=== PATIENT | male | born 1970 | race American Indian/Alaskan Native ===

== ENCOUNTER 2021-06-25 02:14 | Inpatient (IN) | payer SELFPAY ==
--- NOTE | 2021-06-25 03:28 | Emergency Department Report ---
ED Chest Pain HPI - General Chief Complaint: Chest Pain Stated Complaint: CHEST PAIN PUI?: No Time Seen by Provider: 06/25/21 03:25 Source: patient, EMS Mode of arrival: Stretcher Limitations: No Limitations - History of Present Illness Initial Comments: Patient is a 51-year-old male who presents emergency room with complaints of chest pain short of breath. Patient states chest pain for over 5 or 6 hours. Patient states chest pain is worsening. Patient dates he called EMS because the pain became severe. Patient states the pain is 8 out of 10. Patient states his pain was better with the aspirin given by EMS. Patient states the pain is better with rest and aspirin. Patient states the pain is worse with exertion. Patient states the shortness of breath is better with rest and worse with exertion. Patient denies past medical history except for factor V Leiden. Patient denies diabetes. Patient denies hypertension and hyperlipidemia. Patient is obese. Patient denies recent travel. Patient denies recent international travel. Patient denies exposure to the novel coronavirus. Patient denies sick contacts. Patient denies fever and chills. Patient denies cough. Patient denies diarrhea. Patient denies coming in contact with anybody with symptoms of the novel coronavirus. MD Complaint: chest pain Onset: during rest Pain Location: substernal, left chest Pain Radiation: none Severity: severe Severity scale (0 -10): 8 Quality: sharp Consistency: constant Improves With: rest, other Worsens With: exertion re: dyspnea. denies: nausea, vomting, diaphoresis Other Symptoms: denies: cough, fever, syncope, rash, acid taste in mouth, leg swelling, palpitations, burping Treatments Prior to Arrival: aspirin Aspirin use within the Past 7 Days: (0) No - Related Data On Oral Contraceptives: No Allergies Allergy/AdvReac Type Severity Reaction Status Date / Time enoxaparin [From Lovenox] Allergy Hives Verified 06/25/21 04:02 Iodine and Iodide Containing Allergy Swelling Verified 06/25/21 04:02 Produc risperidone [From Risperdal] Allergy Hives Verified 06/25/21 04:02 haloperidol [From Haldol] AdvReac Unknown Verified 06/25/21 04:02 Heart Score - HEART Score History: Moderately suspicious EKG: Non-specific Age: 45-65 Risk factors: 1-2 risk factors Troponin: < normal limit HEART Score: 4 - EKG Read Time Time EKG Completed: 00:00 EKG Read Time: 00:00 ED Review of Systems ROS: Stated complaint: CHEST PAIN Other details as noted in HPI Constitutional: denies: chills, fever Eyes: denies: eye pain, eye discharge, vision change ENT: denies: ear pain, throat pain Respiratory: see HPI, shortness of breath. denies: cough, wheezing Cardiovascular: as per HPI, chest pain. denies: palpitations Endocrine: no symptoms reported Gastrointestinal: denies: abdominal pain, nausea, diarrhea Genitourinary: denies: urgency, dysuria Musculoskeletal: denies: back pain, joint swelling, arthralgia Skin: denies: rash, lesions Neurological: denies: headache, weakness, paresthesias Psychiatric: denies: anxiety, depression Hematological/Lymphatic: denies: easy bleeding, easy bruising ED Past Medical Hx - Past Medical History Previous Medical History?: Yes Additional medical history: Factor V Leiden - Surgical History Past Surgical History?: No - Family History Family history: no significant - Social History Smoking Status: Never Smoker Substance Use Type: None ED Physical Exam - General Limitations: No Limitations General appearance: alert, in no apparent distress - Head Head exam: Present: atraumatic, normocephalic - Eye Eye exam: Present: normal appearance - ENT ENT exam: Present: mucous membranes moist - Neck Neck exam: Present: normal inspection - Respiratory Respiratory exam: Present: normal lung sounds bilaterally. Absent: respiratory distress, chest wall tenderness - Cardiovascular Cardiovascular Exam: Present: regular rate, normal rhythm. Absent: systolic murmur, diastolic murmur, rubs, gallop - GI/Abdominal GI/Abdominal exam: Present: soft, normal bowel sounds - Rectal Rectal exam: Present: deferred - Extremities Exam Extremities exam: Present: normal inspection - Back Exam Back exam: Present: normal inspection - Neurological Exam Neurological exam: Present: alert, oriented X3 - Psychiatric Psychiatric exam: Present: normal affect, normal mood - Skin Skin exam: Present: warm, dry, intact, normal color. Absent: rash ED Course Vital Signs 06/25/21 06/25/21 03:28 04:53 Temperature 98.3 F Pulse Rate 80 77 Respiratory 14 15 Rate Blood Pressure 167/110 186/89 [Right] O2 Sat by Pulse 99 95 Oximetry - Reevaluation(s) Reevaluation #1: Patient states the pain is better. Patient states he is now feeling anxious. Patient will be given Ativan. Patient agrees with plan of care. 06/25/21 04:34 Reevaluation #2: Patient states he is feeling better. I discussed all results with patient. I discussed plan of care with patient. Patient agrees with plan of care and admission. Patient to be admitted to the hospitalist service. 06/25/21 05:12 - Consultations Consultation #1: Hospitalist consulted for admission. Hospitalist to admit patient. 06/25/21 05:12 SAUMYA score - Saumya Score Age > 65: (0) No Aspirin use within the Past 7 Days: (0) No 3 or more CAD Risk Factors: (0) No 2 or more Angina events in past 24 hrs: (0) No Known CAD with more than 50% Stenosis: (0) No Elevated Cardiac Markers: (0) No ST Deviation Greater than 0.5mm: (0) No SAUMYA Score: 0 ED Medical Decision Making - Lab Data Result diagrams: 06/25/21 04:08 06/25/21 04:08 - EKG Data -: EKG Interpreted by Me EKG shows normal: sinus rhythm, axis, intervals, QRS complexes, ST-T waves Rate: normal - Radiology Data Radiology results: report reviewed, image reviewed interpreted by me: Chest x-ray: No pneumonia, no pneumothorax, no foreign body, no osseous findings, no acute findings CHEST 1 VIEW 06/25/2021 4:22 AM INDICATION / CLINICAL INFORMATION: Chest Pain. COMPARISON: None available. FINDINGS: SUPPORT DEVICES: None. HEART / MEDIASTINUM: No significant abnormality. LUNGS / PLEURA: No significant pulmonary or pleural abnormality. No pneumothorax. ADDITIONAL FINDINGS: No significant additional findings. IMPRESSION: 1. No acute findings. - Medical Decision Making Patient is a 51-year-old male who presents emergency room complaints of chest pain and shortness of breath. Patient is obese. Patient had labs done. Patient's labs unremarkable except for mild renal insufficiency. Patient given aspirin, morphine and Zofran for the chest pain. Patient's chest pain is well. Patient states that became anxious. Patient given 1 of Ativan and responded well to that. Patient had a chest x-ray which was negative for acute findings. Patient had an EKG done which was negative for acute findings and a normal ST. I personally reviewed the EKG and chest x-ray. Patient's heart score is elevated. Patient is high risk and the patient will require a inpatient rule out of ACS. Patient admitted to the hospital service for further evaluation treatment and rule out ACS. Critical care time documented due to the multiple reassessments, prolonged time at the bedside, interpretation of diagnostics and labs. - Differential Diagnosis Chest pain, ACS, shortness of breath, anxiety, obesity Critical Care Time: Yes Critical care time in (mins) excluding proc time.: 35 Critical care attestation.: If time is entered above; I have spent that time in minutes in the direct care of this critically ill patient, excluding procedure time. Critical Care Time: 35 minutes ED Disposition Clinical Impression: SOB (shortness of breath), Anxiety, Mild renal insufficiency Chest pain Qualifiers: Chest pain type: unspecified Qualified Code(s): R07.9 - Chest pain, unspecified Disposition: ADMITTED INPATIENT Is pt being admited?: Yes Does the pt Need Aspirin: No Condition: Critical Referrals: PRIMARY CARE, [Primary Care Provider] - 3-5 Days Time of Disposition: 05:18
--- NOTE | 2021-06-25 04:32 | XRay Report ---
CHEST 1 VIEW 06/25/2021 4:22 AM INDICATION / CLINICAL INFORMATION: Chest Pain. COMPARISON: None available. FINDINGS: SUPPORT DEVICES: None. HEART / MEDIASTINUM: No significant abnormality. LUNGS / PLEURA: No significant pulmonary or pleural abnormality. No pneumothorax. ADDITIONAL FINDINGS: No significant additional findings. IMPRESSION: 1. No acute findings. Signer Name: Dereck Reardon MD Signed: 06/25/2021 4:27 AM Workstation Name: [id number]
[2021-06-25] MEDS ORDERED: LORazepam 2 MG/ML VIAL IV ONE (04:34)
[2021-06-25 04:36] LABS: Basophils % (Auto) 0.4 % (0.0-1.8); Eosinophils # (Auto) 0.1 K/mm3 (0.0-0.4); Eosinophils % (Auto) 1.7 % (0.0-4.3); Hematocrit 50.5 % (35.5-45.6); Hemoglobin 16.6 gm/dl (11.8-15.2); Lymphocytes # (Auto) 2.3 K/mm3 (1.2-5.4); Lymphocytes % (Auto) 41.3 % (13.4-35.0); Mean Corpuscular HGB Conc 33 % (32-34); Mean Corpuscular Volume 87 fl (84-94); Monocytes # (Auto) 0.6 K/mm3 (0.0-0.8); Monocytes % (Auto) 10.1 % (0.0-7.3); Platelet Count 164 K/mm3 (140-440); Red Blood Count 5.82 M/mm3 (3.65-5.03); Red Cell Distribution Width 14.1 % (13.2-15.2)
[2021-06-25 04:43] LABS: INR 0.88 (0.87-1.13)
[2021-06-25 04:44] LABS: Partial Thromboplastin Time 28.5 Sec. (24.2-36.6)
[2021-06-25] MEDS ORDERED: ONDANSETRON 4 MG/2 ML INJ IV ONE (04:46)
[2021-06-25] MEDS ORDERED: MORPHINE 2 MG/1 ML INJ IV ONE (04:46)
[2021-06-25 04:49] LABS: Alanine Aminotransferase 37 units/L (7-56); BUN/Creatinine Ratio 6; Blood Urea Nitrogen 10 mg/dL (9-20); Calcium 9.9 mg/dL (8.4-10.2); Hemolysis Index 2
--- NOTE | 2021-06-25 08:49 | History and Physical Report ---
History of Present Illness Date of examination: 06/25/21 Date of admission: 06/25/21 05:18 Chief complaint: cp History of present illness: 51-year-old male with past medical history of factor V Leiden deficiency who presents to the emergency department with complaints of chest pain shortness of breath. Patient reports pain has been persistent for the past 5 to 6 hours prior to admission. Patient reports that his pain has progressively worsened which prompted his call for EMS and prompted his visit to the emergency room. He reports improvement of his chest pain with aspirin by EMS. Patient reports pain is worse with exertion. Patient also has some associated dyspnea but denies any nausea or vomiting. No diaphoresis. Patient denies any recent travel. Patient denies any exposure to COVID-19. No headache or visual disturbances Past History Past Medical History: other (Factor V Leiden deficiency) Past Surgical History: No surgical history Social history: no significant social history Family history: no significant family history Medications and Allergies Allergies Allergy/AdvReac Type Severity Reaction Status Date / Time enoxaparin [From Lovenox] Allergy Hives Verified 06/25/21 04:02 Iodine and Iodide Containing Allergy Swelling Verified 06/25/21 04:02 Produc risperidone [From Risperdal] Allergy Hives Verified 06/25/21 04:02 haloperidol [From Haldol] AdvReac Unknown Verified 06/25/21 04:02 Review of Systems All systems: negative Exam - Constitutional Vitals: Temp Pulse Resp BP Pulse Ox 98.2 F 88 20 179/107 95 06/25/21 08:26 06/25/21 08:26 06/25/21 08:26 06/25/21 08:26 06/25/21 08:26 General appearance: Present: no acute distress, well-nourished - EENT Eyes: Present: PERRL ENT: hearing intact, clear oral mucosa - Neck Neck: Present: supple, normal ROM - Respiratory Respiratory effort: normal Respiratory: bilateral: CTA - Cardiovascular Heart Sounds: Present: S1 & S2. Absent: rub, click - Extremities Extremities: pulses symmetrical, No edema Peripheral Pulses: within normal limits - Abdominal General gastrointestinal: Present: soft, non-tender, non-distended, normal bowel sounds Male genitourinary: Present: normal - Integumentary Integumentary: Present: clear, warm, dry - Musculoskeletal Musculoskeletal: gait normal, strength equal bilaterally - Psychiatric Psychiatric: appropriate mood/affect, intact judgment & insight - Neurologic Neurologic: CNII-XII intact, moves all extremities HEART Score - HEART Score EKG: Non-specific Age: 45-65 Risk factors: 1-2 risk factors Troponin: Troponin T < 0.010 ng/mL (0.00-0.029) 06/25/21 04:08 Troponin: < normal limit Results - Labs CBC & Chem 7: 06/25/21 04:08 06/25/21 04:08 Labs: Laboratory Last Values WBC 5.6 K/mm3 (4.5-11.0) 06/25/21 04:08 RBC 5.82 M/mm3 (3.65-5.03) H 06/25/21 04:08 Hgb 16.6 gm/dl (11.8-15.2) H 06/25/21 04:08 Hct 50.5 % (35.5-45.6) H 06/25/21 04:08 MCV 87 fl (84-94) 06/25/21 04:08 MCH 29 pg (28-32) 06/25/21 04:08 MCHC 33 % (32-34) 06/25/21 04:08 RDW 14.1 % (13.2-15.2) 06/25/21 04:08 Plt Count 164 K/mm3 (140-440) 06/25/21 04:08 Lymph % (Auto) 41.3 % (13.4-35.0) H 06/25/21 04:08 [place] % (Auto) 10.1 % (0.0-7.3) H 06/25/21 04:08 Eos % (Auto) 1.7 % (0.0-4.3) 06/25/21 04:08 Baso % (Auto) 0.4 % (0.0-1.8) 06/25/21 04:08 Lymph # (Auto) 2.3 K/mm3 (1.2-5.4) 06/25/21 04:08 [place] # (Auto) 0.6 K/mm3 (0.0-0.8) 06/25/21 04:08 Eos # (Auto) 0.1 K/mm3 (0.0-0.4) 06/25/21 04:08 Baso # (Auto) 0.0 K/mm3 (0.0-0.1) 06/25/21 04:08 Seg Neutrophils % 46.5 % (40.0-70.0) 06/25/21 04:08 Seg Neutrophils # 2.6 K/mm3 (1.8-7.7) 06/25/21 04:08 PT 13.0 Sec. (12.2-14.9) 06/25/21 04:08 INR 0.88 (0.87-1.13) 06/25/21 04:08 APTT 28.5 Sec. (24.2-36.6) 06/25/21 04:08 Sodium 135 mmol/L (137-145) L 06/25/21 04:08 Potassium 3.6 mmol/L (3.6-5.0) 06/25/21 04:08 Chloride 97.3 mmol/L (98-107) L 06/25/21 04:08 Carbon Dioxide 21 mmol/L (22-30) L 06/25/21 04:08 Anion Gap 20 mmol/L 06/25/21 04:08 BUN 10 mg/dL (9-20) 06/25/21 04:08 Creatinine 1.7 mg/dL (0.8-1.3) H 06/25/21 04:08 Estimated GFR 43 ml/min 06/25/21 04:08 BUN/Creatinine Ratio 6 % 06/25/21 04:08 Glucose 87 mg/dL (75-100) 06/25/21 04:08 Calcium 9.9 mg/dL (8.4-10.2) 06/25/21 04:08 Total Bilirubin 0.20 mg/dL (0.1-1.2) 06/25/21 04:08 AST 31 units/L (5-40) 06/25/21 04:08 ALT 37 units/L (7-56) 06/25/21 04:08 Alkaline Phosphatase 93 units/L (35-129) 06/25/21 04:08 Troponin T < 0.010 ng/mL (0.00-0.029) 06/25/21 04:08 Total Protein 7.4 g/dL (6.3-8.2) 06/25/21 04:08 Albumin 4.0 g/dL (3.9-5) 06/25/21 04:08 Albumin/Globulin Ratio 1.2 % 06/25/21 04:08 Assessment and Plan Assessment and plan: Chest pain. Factor V Leiden deficiency. Acute renal failure/acute kidney injury. 06/25/2021. The patient will be admitted and placed on the chest pain pathway. We will follow-up cardiac isoenzymes and serial EKG. Initial troponin is negative. Cardiology consultation. Ischemic evaluation per cardiology recommendations. Given patient's factor V Leiden deficiency, we will check a D- dimer to risk stratify for possible PE. Consider CTA of chest. With regards to patient's renal insufficiency, we will start IV fluid hydration and follow-up BMP. Consider renal ultrasound and nephrology consultation.
[2021-06-25] MEDS ORDERED: ACETAMINOPHEN 325 MG TAB PO PRN ×2 (08:50→10:00)
[2021-06-25] MEDS ORDERED: ONDANSETRON 4 MG/2 ML INJ IV PRN (10:00)
[2021-06-25] MEDS ORDERED: traMADol 50 MG TAB PO PRN (10:00)
--- NOTE | 2021-06-25 13:09 | Event Note ---
Date: 06/25/21 Patient argumentative and refusing all recommendations and care from cardiology. Attempted to explain plan of care but patien continued to refuse all care. Will sign off
[2021-06-25 15:17] LABS: Basophils # (Auto) 0.1 K/mm3 (0.0-0.1); Basophils % (Auto) 2.1 % (0.0-1.8); Eosinophils # (Auto) 0.2 K/mm3 (0.0-0.4); Hematocrit 46.4 % (35.5-45.6); Hemoglobin 15.2 gm/dl (11.8-15.2); Lymphocytes # (Auto) 1.7 K/mm3 (1.2-5.4); Lymphocytes % (Auto) 36.9 % (13.4-35.0); Mean Corpuscular HGB Conc 33 % (32-34); Mean Corpuscular Volume 85 fl (84-94); Monocytes # (Auto) 0.5 K/mm3 (0.0-0.8); Monocytes % (Auto) 10.1 % (0.0-7.3); Platelet Count 164 K/mm3 (140-440); Red Blood Count 5.47 M/mm3 (3.65-5.03)
[2021-06-25 15:30] LABS: BUN/Creatinine Ratio 12; Blood Urea Nitrogen 15 mg/dL (9-20); Hemolysis Index 19
[2021-06-25] MEDS: HYDROcodone/ACETAMINOPHEN 5-325 MG TAB PO PRN (18:06)
[2021-06-25] MEDS: MORPHINE 4 MG/1 ML INJ IV PRN (22:19)
[2021-06-25] MEDS ORDERED: hydrALAZINE 20 MG/1 ML INJ IV ONE (22:49)
[2021-06-26] MEDS: DIVALPROEX DR 250 MG TAB PO SCH ×3 (01:30→21:27)
[2021-06-26] MEDS ORDERED: hydrALAZINE 20 MG/1 ML INJ IV ONE (05:14)
[2021-06-26] MEDS: HYDROcodone/ACETAMINOPHEN 5-325 MG TAB PO PRN (05:18)
--- NOTE | 2021-06-26 07:39 | Discharge Summary ---
Providers - Providers Date of Admission: 06/25/21 05:18 Date of discharge: 06/26/21 Attending physician: JENNIFER SIMMONS 06/25/21 Consult to Cardiac Rehabilitation [CONS] Routine Reason For Exam: Phase I 06/25/21 08:50 Consult to Cardiology [CONS] Routine Consulting Provider: ARIANA BURR Reason For Exam: cp Primary care physician: [facility] Reason for admission: Chest pain Condition: Good Hospital course: 51-year-old male with past medical history of factor V Leiden deficiency who presented through the emergency department with chief complaint of chest pain. Patient was admitted with diagnosis of acute kidney injury and chest pain and was seen by cardiology in consultation. However, patient was noted to be argumentative and refusing all recommendations and care from cardiology. Cardiology attempt to explain plan of care but patient continued to refuse all care. Patient's troponins were found to be negative. No acute changes on EKG. The patient's acute kidney injury/acute renal failure resolved with IV fluid hydration. Creatinine returned to normal range of 1.3. Given patient's history of factor V Leiden deficiency, we will obtain CTA of chest (if patient agreeable) and if found to be negative patient will discharge home. Dedicated discharge time 35 minutes Disposition: 01 HOME / SELF CARE / HOMELESS Final Discharge Diagnosis (Prints w/discharge instructions): Chest pain etiology likely secondary to GERD, factor V Leiden deficiency, acute kidney injury secondary to vasomotor nephropathy Core Measure Documentation - Palliative Care Palliative Care/ Comfort Measures: Not Applicable - Core Measures Any of the following diagnoses?: none Exam - Constitutional Vitals: Temp Pulse Resp BP Pulse Ox 98.1 F 81 18 180/89 92 06/26/21 04:00 06/26/21 04:00 06/26/21 04:00 06/26/21 04:00 06/26/21 05:05 General appearance: Present: no acute distress, well-nourished - EENT Eyes: Present: PERRL ENT: hearing intact, clear oral mucosa - Neck Neck: Present: supple, normal ROM - Respiratory Respiratory effort: normal Respiratory: bilateral: CTA - Cardiovascular Heart Sounds: Present: S1 & S2. Absent: rub, click - Extremities Extremities: pulses symmetrical, No edema Peripheral Pulses: within normal limits - Abdominal General gastrointestinal: Present: soft, non-tender, non-distended, normal bowel sounds Male genitourinary: Present: normal - Integumentary Integumentary: Present: clear, warm, dry - Musculoskeletal Musculoskeletal: gait normal, strength equal bilaterally - Psychiatric Psychiatric: appropriate mood/affect, intact judgment & insight - Neurologic Neurologic: CNII-XII intact, moves all extremities Plan Activity: advance as tolerated Weight Bearing Status: Weight Bear as Tolerated Follow up with: PRIMARY CARE, [Primary Care Provider] - 3-5 Days Prescriptions: Warfarin [Coumadin] 7.5 mg PO QDAY #30 QUEtiapine [SEROquel] 100 mg PO BID #60
[2021-06-26] MEDS ORDERED: HEPARIN 10,000 UNITS/10 ML VIAL IV PRN ×2 (08:17→11:43)
--- NOTE | 2021-06-26 09:08 | Progress Note ---
Assessment and Plan Assessment and plan: Chest pain. Factor V Leiden deficiency. Acute renal failure/acute kidney injury. 06/25/2021. The patient will be admitted and placed on the chest pain pathway. We will follow-up cardiac isoenzymes and serial EKG. Initial troponin is negative. Cardiology consultation. Ischemic evaluation per cardiology recommendations. Given patient's factor V Leiden deficiency, we will check a D- dimer to risk stratify for possible PE. Consider CTA of chest. With regards to patient's renal insufficiency, we will start IV fluid hydration and follow-up BMP. Consider renal ultrasound and nephrology consultation. 06/26/2021. Cardiology reports patient was extremely argumentative and combative yesterday during their evaluation. Patient refused all tests and recommendations. I spoke with the patient this morning and he reports paranoia and history of schizophrenia. Patient also voiced to nursing suicidal ideation. We will obtain psychiatry consultation and place the patient on 101. Patient will also undergo VQ scan to rule out PE given factor V Leiden deficiency. Start heparin bridge and Coumadin. Patient reports that he has been without his Coumadin for several days. Renal insufficiency has improved and acute kidney injury resolved with IV fluid hydration. Patient back to baseline creatinine at 1.3 History Interval history: No new issues overnight. Patient reports suicidal ideation this morning Hospitalist Physical - Constitutional Vitals: Temp Pulse Resp BP Pulse Ox 97.6 F 77 18 191/106 95 06/26/21 08:06 06/26/21 08:06 06/26/21 08:06 06/26/21 08:06 06/26/21 08:06 General appearance: Present: no acute distress, well-nourished - EENT Eyes: Present: PERRL, EOM intact ENT: hearing intact, clear oral mucosa, dentition normal - Neck Neck: Present: supple, normal ROM - Respiratory Respiratory effort: normal Respiratory: bilateral: CTA - Cardiovascular Rhythm: regular Heart Sounds: Present: S1 & S2. Absent: gallop, rub - Extremities Extremities: no ischemia, No edema, Full ROM - Abdominal General gastrointestinal: soft, non-tender, non-distended, normal bowel sounds - Integumentary Integumentary: Present: clear, warm, dry - Neurologic Neurologic: CNII-XII intact, moves all extremities HEART Score - HEART Score EKG: Non-specific Age: 45-65 Risk factors: 1-2 risk factors Troponin: Troponin T < 0.010 ng/mL (0.00-0.029) 06/25/21 14:24 Troponin: < normal limit Results - Labs CBC & Chem 7: 06/25/21 14:24 06/25/21 14:24 Labs: Laboratory Last Values WBC 4.5 K/mm3 (4.5-11.0) 06/25/21 14:24 RBC 5.47 M/mm3 (3.65-5.03) H 06/25/21 14:24 Hgb 15.2 gm/dl (11.8-15.2) 06/25/21 14:24 Hct 46.4 % (35.5-45.6) H 06/25/21 14:24 MCV 85 fl (84-94) 06/25/21 14:24 MCH 28 pg (28-32) 06/25/21 14:24 MCHC 33 % (32-34) 06/25/21 14:24 RDW 14.0 % (13.2-15.2) 06/25/21 14:24 Plt Count 164 K/mm3 (140-440) 06/25/21 14:24 Lymph % (Auto) 36.9 % (13.4-35.0) H 06/25/21 14:24 [place] % (Auto) 10.1 % (0.0-7.3) H 06/25/21 14:24 Eos % (Auto) 4.0 % (0.0-4.3) 06/25/21 14:24 Baso % (Auto) 2.1 % (0.0-1.8) H 06/25/21 14:24 Lymph # (Auto) 1.7 K/mm3 (1.2-5.4) 06/25/21 14:24 [place] # (Auto) 0.5 K/mm3 (0.0-0.8) 06/25/21 14:24 Eos # (Auto) 0.2 K/mm3 (0.0-0.4) 06/25/21 14:24 Baso # (Auto) 0.1 K/mm3 (0.0-0.1) 06/25/21 14:24 Seg Neutrophils % 46.9 % (40.0-70.0) 06/25/21 14:24 Seg Neutrophils # 2.1 K/mm3 (1.8-7.7) 06/25/21 14:24 PT 13.0 Sec. (12.2-14.9) 06/25/21 04:08 INR 0.88 (0.87-1.13) 06/25/21 04:08 APTT 28.5 Sec. (24.2-36.6) 06/25/21 04:08 Sodium 133 mmol/L (137-145) L 06/25/21 14:24 Potassium 3.8 mmol/L (3.6-5.0) 06/25/21 14:24 Chloride 98.5 mmol/L (98-107) 06/25/21 14:24 Carbon Dioxide 20 mmol/L (22-30) L 06/25/21 14:24 Anion Gap 18 mmol/L 06/25/21 14:24 BUN 15 mg/dL (9-20) 06/25/21 14:24 Creatinine 1.3 mg/dL (0.8-1.3) 06/25/21 14:24 Estimated GFR > 60 ml/min 06/25/21 14:24 BUN/Creatinine Ratio 12 % 06/25/21 14:24 Glucose 124 mg/dL (75-100) H 06/25/21 14:24 Calcium 9.0 mg/dL (8.4-10.2) 06/25/21 14:24 Total Bilirubin 0.20 mg/dL (0.1-1.2) 06/25/21 04:08 AST 31 units/L (5-40) 06/25/21 04:08 ALT 37 units/L (7-56) 06/25/21 04:08 Alkaline Phosphatase 93 units/L (35-129) 06/25/21 04:08 Troponin T < 0.010 ng/mL (0.00-0.029) 06/25/21 14:24 Total Protein 7.4 g/dL (6.3-8.2) 06/25/21 04:08 Albumin 4.0 g/dL (3.9-5) 06/25/21 04:08 Albumin/Globulin Ratio 1.2 % 06/25/21 04:08 Brantley/IV: Voiding Method Urinal Active Medications - Current Medications Current Medications: Generic Name Dose Route Start Last Admin Trade Name Freq PRN Reason Stop Dose Admin Acetaminophen 650 mg 06/25/21 10:00 Acetaminophen 325 Mg Tab PO Q4H PRN Pain MILD(1-3)/Fever >100.5/CASTRO Hydrocodone Bitart/Acetaminophen 2 each 06/25/21 10:00 06/26/21 05:18 Hydrocodone/Acetaminophen 5-325 Mg Tab PO 2 each Q6H PRN Administration Pain, Moderate (4-6) Heparin Sodium (Porcine) 5,200 unit 06/26/21 08:17 Heparin 10,000 Units/10 Ml Vial 40 unit/kg (5200 unit) IV Q6H PRN Anti-Xa Assay < 0.1 units/ml Morphine Sulfate 2 mg 06/25/21 10:00 06/25/21 22:19 Morphine 4 Mg/1 Ml Inj IV 2 mg Q4H PRN Administration Pain , Severe (7-10) Ondansetron HCl 4 mg 06/25/21 10:00 Ondansetron 4 Mg/2 Ml Inj IV Q8H PRN Nausea And Vomiting Quetiapine Fumarate 100 mg 06/26/21 10:00 Quetiapine 100 Mg Tab PO BID [facility] Sodium Chloride 10 ml 06/25/21 10:00 06/25/21 22:20 Sodium Chloride 0.9% 10 Ml Flush Syringe IV 10 ml BID [facility] Administration Sodium Chloride 10 ml 06/25/21 08:50 Sodium Chloride 0.9% 10 Ml Flush Syringe IV PRN PRN LINE FLUSH Sodium Chloride 10 ml 06/25/21 09:00 Sodium Chloride 0.9% 10 Ml Flush Syringe IV PRN PRN LINE FLUSH Tramadol HCl 50 mg 06/25/21 10:00 Tramadol 50 Mg Tab PO Q6H PRN Pain, Moderate (4-6) Warfarin Sodium 7.5 mg 06/26/21 17:00 Warfarin 7.5 Mg Tab PO DAILY@1700 [facility] Protocol
[2021-06-26 09:34] LABS: Eosinophils # (Auto) 0.2 K/mm3 (0.0-0.4); Eosinophils % (Auto) 2.9 % (0.0-4.3); Hematocrit 49.5 % (35.5-45.6); Hemoglobin 16.2 gm/dl (11.8-15.2); INR 0.87 (0.87-1.13); Lymphocytes # (Auto) 1.5 K/mm3 (1.2-5.4); Lymphocytes % (Auto) 27.8 % (13.4-35.0); Mean Corpuscular HGB Conc 33 % (32-34); Mean Corpuscular Volume 86 fl (84-94); Monocytes # (Auto) 0.5 K/mm3 (0.0-0.8); Monocytes % (Auto) 9.3 % (0.0-7.3); Platelet Count 149 K/mm3 (140-440); Red Blood Count 5.78 M/mm3 (3.65-5.03); Red Cell Distribution Width 13.9 % (13.2-15.2)
[2021-06-26 09:35] LABS: Basophils % (Auto) 0.4 % (0.0-1.8); Partial Thromboplastin Time 26.6 Sec. (24.2-36.6)
[2021-06-26 10:12] LABS: BUN/Creatinine Ratio 15; Blood Urea Nitrogen 19 mg/dL (9-20); Hemolysis Index 10
[2021-06-26] MEDS: QUEtiapine 100 MG TAB PO SCH ×3 (10:29→21:40)
--- NOTE | 2021-06-26 12:15 | Consultation ---
History of Present Illness - Reason for Consult Consult date: 06/26/21 Reason for consult: psychosis - Chief Complaint Chief complaint: cp - History of Present Psychiatric Illness Per Note: 51-year-old male with past medical history of factor V Leiden deficiency who presents to the emergency department with complaints of chest pain shortness of breath. Patient reports pain has been persistent for the past 5 to 6 hours prior to admission. Patient reports that his pain has progressively worsened which prompted his call for EMS and prompted his visit to the emergency room. He reports improvement of his chest pain with aspirin by EMS. Patient reports pain is worse with exertion. Patient also has some asso ciated dyspnea but denies any nausea or vomiting. No diaphoresis. Patient denies any recent travel. Patient denies any exposure to COVID-19. No headache or visual disturbances. Shane Thompson is a 51 year old male with history of Schizophrenia. In my interview with the patient, he is agitated and paranoid. 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 He reports noncompliance with psychotropic medications for the past 5 days. The patient states he has being depressed for 2 days and feels worse today. He reports a prior suicidal attempt via overdosing on pills;the patient endorses suicidal ideation with a plan to overdose on pills. He reports auditory/ tactile hallucination stating " voices saying to kill myself and some of my family members, I don't feel safe, people are poisoning my food and they are out to get me." He denies homicidal ideation. PAST PSYCHIATRIC HISTORY Diagnoses: Schizophrenia Suicide attempts or Self-harm behavior: Yes Prior psychiatric hospitalizations: Yes Substance Abuse history: Patient denies Previous psychiatric medications tried: Risperidone, Haldol Outpatient treatment: Unknown PAST MEDICAL HISTORY: Family Psychiatric History: Not available SOCIAL HISTORY Marital Status: Single Living Arrangements: Lives with ex and son Employment Status:employed- concrete truck driver Access to guns/weapons: None reported Education: 12th grade History of Abuse: None reported Legal History: None reported REVIEW OF SYSTEMS Constitutional: Negative for weight loss ENT: Negative for stridor Respiratory: Negative for cough or hemoptysis All other systems reviewed and are negative MENTAL STATUS EXAMINATION General Appearance and Behavior: Age appropriate, good hygiene, wearing appropriate clothes, good eye contact, cooperative polite with questioning. Cooperation: Participating/engaged Psychomotor Behavior: unremarkable and within normal limits Mood:agitated Affect and affective range: congruent with mood Thought Process: racing thoughts Thought Content: suicidal Speech: Normal volume, Regular rate and rhythm Intellectual Functioning: Average Suicidal Ideation: Yes Homicidal Ideation: Denies Hallucinations: Yes, auditory/Tactile Impulse Control:Questionable Insight and Judgment: Limit insight and poor judgment Memory: Normal Attention: Divided Orientation: Alert, oriented Assessment and Plan (1) Schizophrenia-F20.9 Current Visit: Yes Status: Acute RECOMMENDATIONS I agree with the current treatment plan Start Depakote DR 250mg po BID Risks, benefits and alternatives of medications discussed with the patient, questions answered and consent obtained from patient. PSYCHOTHERAPY: Supportive psychotherapy provided MEDICAL: Per primary team DELIRIUM PRECAUTIONS: Please re-orient patient frequently, keep lights on during the day, and minimize benzodiazepines and opiates as these medications could worsen patient's confusion. HEAD BUCKER: Per medical team DISPOSITION: Recommend acute inpatient psychiatric hospitalization at this time FOLLOW-UP: Will follow for medication management. Thank you for the consult. Please contact with any questions and/or concerns. Medications and Allergies Allergies Allergy/AdvReac Type Severity Reaction Status Date / Time enoxaparin [From Lovenox] Allergy Hives Verified 06/25/21 04:02 haloperidol [From Haldol] Allergy HIVES Verified 06/25/21 12:22 SHORTNESS OF BREATH Iodine and Iodide Containing Allergy Swelling Verified 06/25/21 04:02 Produc risperidone [From Risperdal] Allergy Hives Verified 06/25/21 04:02 Home Medications Medication Instructions Recorded Confirmed Last Taken Type QUEtiapine [SEROquel] 100 mg PO BID #60 06/26/21 Unknown Rx Warfarin [Coumadin] 7.5 mg PO QDAY #30 06/26/21 Unknown Rx Active Meds: Active Medications Acetaminophen (Acetaminophen 325 Mg Tab) 650 mg PO Q4H PRN PRN Reason: Pain MILD(1-3)/Fever >100.5/CASTRO Hydrocodone Bitart/Acetaminophen (Hydrocodone/Acetaminophen 5-325 Mg Tab) 2 each PO Q6H PRN PRN Reason: Pain, Moderate (4-6) Last Admin: 06/26/21 05:18 Dose: 2 each Documented by: Heparin Sodium (Porcine) (Heparin 10,000 Units/10 Ml Vial) 5,000 unit IV Q6H PRN PRN Reason: Anti-Xa Assay < 0.1 units/ml Heparin Sodium/Sodium Chloride (Heparin/ 0.45% Nacl-25,000 Unit/500 Ml) 25,000 unit in 500 mls @ 30 mls/hr IV TITR [facility]; Protocol Morphine Sulfate (Morphine 4 Mg/1 Ml Inj) 2 mg IV Q4H PRN PRN Reason: Pain , Severe (7-10) Last Admin: 06/25/21 22:19 Dose: 2 mg Documented by: Ondansetron HCl (Ondansetron 4 Mg/2 Ml Inj) 4 mg IV Q8H PRN PRN Reason: Nausea And Vomiting Quetiapine Fumarate (Quetiapine 100 Mg Tab) 100 mg PO BID [facility] Sodium Chloride (Sodium Chloride 0.9% 10 Ml Flush Syringe) 10 ml IV BID [facility] Last Admin: 06/25/21 22:20 Dose: 10 ml Documented by: Sodium Chloride (Sodium Chloride 0.9% 10 Ml Flush Syringe) 10 ml IV PRN PRN PRN Reason: LINE FLUSH Sodium Chloride (Sodium Chloride 0.9% 10 Ml Flush Syringe) 10 ml IV PRN PRN PRN Reason: LINE FLUSH Tramadol HCl (Tramadol 50 Mg Tab) 50 mg PO Q6H PRN PRN Reason: Pain, Moderate (4-6) Warfarin Sodium (Warfarin 7.5 Mg Tab) 7.5 mg PO DAILY@1700 [facility]; Protocol Mental Status Exam - Vital signs Last Vital Signs Temp 97.6 F 06/26/21 08:06 Pulse 77 06/26/21 08:06 Resp 18 06/26/21 08:06 BP 191/106 06/26/21 08:06 Pulse Ox 95 06/26/21 08:06 Results Result Diagrams: 06/26/21 08:58 06/26/21 08:58 Abnormal lab results 06/25/21 06/25/21 06/26/21 Range/Units 14:24 14:24 08:58 RBC 5.47 H 5.78 H (3.65-5.03) M/mm3 Hgb 16.2 H (11.8-15.2) gm/dl Hct 46.4 H 49.5 H (35.5-45.6) % Lymph % (Auto) 36.9 H (13.4-35.0) % [place] % (Auto) 10.1 H 9.3 H (0.0-7.3) % Baso % (Auto) 2.1 H (0.0-1.8) % Sodium 133 L (137-145) mmol/L Carbon Dioxide 20 L (22-30) mmol/L Glucose 124 H (75-100) mg/dL 06/26/21 Range/Units 08:58 RBC (3.65-5.03) M/mm3 Hgb (11.8-15.2) gm/dl Hct (35.5-45.6) % Lymph % (Auto) (13.4-35.0) % [place] % (Auto) (0.0-7.3) % Baso % (Auto) (0.0-1.8) % Sodium 134 L (137-145) mmol/L Carbon Dioxide (22-30) mmol/L Glucose 125 H (75-100) mg/dL All other labs normal.
[2021-06-26] MEDS: HEPARIN/ 0.45% NACL DRIP 25,000 UNIT/500 ML BAG IV SCH (15:30)
[2021-06-26] MEDS ORDERED: WARFARIN 7.5 MG TAB PO SCH (17:00)
[2021-06-27] MEDS: HYDROcodone/ACETAMINOPHEN 5-325 MG TAB PO PRN ×3 (01:44→17:39)
[2021-06-27] MEDS: HEPARIN/ 0.45% NACL DRIP 25,000 UNIT/500 ML BAG IV SCH ×2 (06:26→20:34)
[2021-06-27] MEDS: PANTOPRAZOLE 40 MG TAB PO SCH ×2 (07:30→17:40)
--- NOTE | 2021-06-27 08:53 | Progress Note ---
Assessment and Plan Assessment and plan: Chest pain. Factor V Leiden deficiency. Accelerated hypertension. Acute renal failure/acute kidney injury. Schizophrenia Suicidal ideation 06/25/2021. The patient will be admitted and placed on the chest pain pathway. We will follow-up cardiac isoenzymes and serial EKG. Initial troponin is nega tive. Cardiology consultation. Ischemic evaluation per cardiology recommendations. Given patient's factor V Leiden deficiency, we will check a D- dimer to risk stratify for possible PE. Consider CTA of chest. With regards to patient's renal insufficiency, we will start IV fluid hydration and follow-up BMP. Consider renal ultrasound and nephrology consultation. 06/26/2021. Cardiology reports patient was extremely argumentative and combative yesterday during their evaluation. Patient refused all tests and recommendations. I spoke with the patient this morning and he reports paranoia and history of schizophrenia. Patient also voiced to nursing suicidal ideation. We will obtain psychiatry consultation and place the patient on 1013. Patient will also undergo VQ scan to rule out PE given factor V Leiden deficiency. Start heparin bridge and Coumadin. Patient reports that he has been without his Coumadin for several days. Renal insufficiency has improved and acute kidney injury resolved with IV fluid hydration. Patient back to baseline creatinine at 1.3 06/27/2021. Continue 1013 for suicidal ideation. Continue Depakote to 50 mg p.o. twice daily per psychiatry recommendations. Continue heparin drip and Coumadin. VQ scan in a.m. to further assess for PE. However, D-dimer negative so suspicion is low. Creatinine at baseline of 1.3. Blood pressure improved with labetalol twice daily. History Interval history: No new issues overnight. Patient reports suicidal ideation this morning Hospitalist Physical - Constitutional Vitals: Temp Pulse Resp BP Pulse Ox 98.3 F 64 18 118/56 100 06/27/21 04:17 06/27/21 04:17 06/27/21 04:17 06/27/21 04:17 06/27/21 08:00 General appearance: Present: no acute distress, well-nourished - EENT Eyes: Present: PERRL, EOM intact ENT: hearing intact, clear oral mucosa, dentition normal - Neck Neck: Present: supple, normal ROM - Respiratory Respiratory effort: normal Respiratory: bilateral: CTA - Cardiovascular Rhythm: regular Heart Sounds: Present: S1 & S2. Absent: gallop, rub - Extremities Extremities: no ischemia, No edema, Full ROM - Abdominal General gastrointestinal: soft, non-tender, non-distended, normal bowel sounds - Integumentary Integumentary: Present: clear, warm, dry - Neurologic Neurologic: CNII-XII intact, moves all extremities HEART Score - HEART Score EKG: Non-specific Age: 45-65 Risk factors: 1-2 risk factors Troponin: Troponin T < 0.010 ng/mL (0.00-0.029) 06/25/21 14:24 Troponin: < normal limit Results - Labs CBC & Chem 7: 06/26/21 08:58 06/26/21 08:58 Labs: Laboratory Last Values WBC 5.5 K/mm3 (4.5-11.0) 06/26/21 08:58 RBC 5.78 M/mm3 (3.65-5.03) H 06/26/21 08:58 Hgb 16.2 gm/dl (11.8-15.2) H 06/26/21 08:58 Hct 49.5 % (35.5-45.6) H 06/26/21 08:58 MCV 86 fl (84-94) 06/26/21 08:58 MCH 28 pg (28-32) 06/26/21 08:58 MCHC 33 % (32-34) 06/26/21 08:58 RDW 13.9 % (13.2-15.2) 06/26/21 08:58 Plt Count 149 K/mm3 (140-440) 06/26/21 08:58 Lymph % (Auto) 27.8 % (13.4-35.0) 06/26/21 08:58 [place] % (Auto) 9.3 % (0.0-7.3) H 06/26/21 08:58 Eos % (Auto) 2.9 % (0.0-4.3) 06/26/21 08:58 Baso % (Auto) 0.4 % (0.0-1.8) 06/26/21 08:58 Lymph # (Auto) 1.5 K/mm3 (1.2-5.4) 06/26/21 08:58 [place] # (Auto) 0.5 K/mm3 (0.0-0.8) 06/26/21 08:58 Eos # (Auto) 0.2 K/mm3 (0.0-0.4) 06/26/21 08:58 Baso # (Auto) 0.0 K/mm3 (0.0-0.1) 06/26/21 08:58 Seg Neutrophils % 59.6 % (40.0-70.0) 06/26/21 08:58 Seg Neutrophils # 3.3 K/mm3 (1.8-7.7) 06/26/21 08:58 PT 12.8 Sec. (12.2-14.9) 06/26/21 08:58 INR 0.87 (0.87-1.13) 06/26/21 08:58 APTT 26.6 Sec. (24.2-36.6) 06/26/21 08:58 D-Dimer 206.51 ng/mlDDU (0-234) 06/26/21 08:58 Heparin Anti-Xa Level 0.19 U.I./ml (0.3-0.7) L 06/26/21 22:44 Sodium 134 mmol/L (137-145) L 06/26/21 08:58 Potassium 3.8 mmol/L (3.6-5.0) 06/26/21 08:58 Chloride 101.3 mmol/L (98-107) 06/26/21 08:58 Carbon Dioxide 22 mmol/L (22-30) 06/26/21 08:58 Anion Gap 15 mmol/L 06/26/21 08:58 BUN 19 mg/dL (9-20) 06/26/21 08:58 Creatinine 1.3 mg/dL (0.8-1.3) 06/26/21 08:58 Estimated GFR > 60 ml/min 06/26/21 08:58 BUN/Creatinine Ratio 15 % 06/26/21 08:58 Glucose 125 mg/dL (75-100) H 06/26/21 08:58 Calcium 9.0 mg/dL (8.4-10.2) 06/26/21 08:58 Total Bilirubin 0.20 mg/dL (0.1-1.2) 06/25/21 04:08 AST 31 units/L (5-40) 06/25/21 04:08 ALT 37 units/L (7-56) 06/25/21 04:08 Alkaline Phosphatase 93 units/L (35-129) 06/25/21 04:08 Troponin T < 0.010 ng/mL (0.00-0.029) 06/25/21 14:24 Total Protein 7.4 g/dL (6.3-8.2) 06/25/21 04:08 Albumin 4.0 g/dL (3.9-5) 06/25/21 04:08 Albumin/Globulin Ratio 1.2 % 06/25/21 04:08 [place]/IV: Voiding Method Urinal Active Medications - Current Medications Current Medications: Generic Name Dose Route Start Last Admin Trade Name Freq PRN Reason Stop Dose Admin Acetaminophen 650 mg 06/25/21 10:00 Acetaminophen 325 Mg Tab PO Q4H PRN Pain MILD(1-3)/Fever >100.5/CASTRO Hydrocodone Bitart/Acetaminophen 2 each 06/25/21 10:00 06/27/21 01:44 Hydrocodone/Acetaminophen 5-325 Mg Tab PO 2 each Q6H PRN Administration Pain, Moderate (4-6) Divalproex Sodium 250 mg 06/26/21 13:00 06/26/21 21:[address] 250 Mg Tab PO Not Given BID [facility] Heparin Sodium (Porcine) 5,000 unit 06/26/21 08:17 Heparin 10,000 Units/10 Ml Vial IV Q6H PRN Anti-Xa Assay < 0.1 units/ml Heparin Sodium/Sodium Chloride 25,000 unit in 500 mls @ 30 mls/hr 06/26/21 12:00 06/27/21 06:26 Heparin/ 0.45% Nacl-25,000 Unit/500 Ml IV 1,650 units/hr TITR AARON 33 mls/hr Administration Protocol 1,500 UNITS/HR Labetalol HCl 200 mg 06/26/21 22:00 06/26/21 21:23 Labetalol 200 Mg Tab PO 200 mg BID AARON Administration Lorazepam 2 mg 06/26/21 12:19 Lorazepam 2 Mg/Ml Vial IV Q4H PRN Agitation Morphine Sulfate 2 mg 06/25/21 10:00 06/25/21 22:19 Morphine 4 Mg/1 Ml Inj IV 2 mg Q4H PRN Administration Pain , Severe (7-10) Ondansetron HCl 4 mg 06/25/21 10:00 Ondansetron 4 Mg/2 Ml Inj IV Q8H PRN Nausea And Vomiting Pantoprazole Sodium 40 mg 06/27/21 07:30 Pantoprazole 40 Mg Tab PO BIDAC [facility]ARON Quetiapine Fumarate 100 mg 06/26/21 10:00 06/26/21 21:40 Quetiapine 100 Mg Tab PO Not Given BID [facility]ON Sodium Chloride 10 ml 06/25/21 10:00 06/26/21 21:24 Sodium Chloride 0.9% 10 Ml Flush Syringe IV 10 ml BID [facility] Administration Sodium Chloride 10 ml 06/25/21 08:50 Sodium Chloride 0.9% 10 Ml Flush Syringe IV PRN PRN LINE FLUSH Sodium Chloride 10 ml 06/25/21 09:00 Sodium Chloride 0.9% 10 Ml Flush Syringe IV PRN PRN LINE FLUSH Tramadol HCl 50 mg 06/25/21 10:00 Tramadol 50 Mg Tab PO Q6H PRN Pain, Moderate (4-6) Warfarin Sodium 7.5 mg 06/26/21 17:00 06/26/21 18:19 Warfarin 7.5 Mg Tab PO 7.5 mg DAILY@1700 [facility] Administration Protocol
[2021-06-27 09:05] LABS: INR 0.84 (0.87-1.13)
[2021-06-27] MEDS: QUEtiapine 100 MG TAB PO SCH ×2 (10:20→21:49)
[2021-06-27] MEDS: DIVALPROEX DR 250 MG TAB PO SCH ×2 (10:20→21:50)
[2021-06-27] MEDS: WARFARIN 10 MG TAB PO SCH (17:40)
[2021-06-28] MEDS: LORazepam 2 MG/ML VIAL IV PRN ×4 (01:13→18:36)
[2021-06-28 08:20] LABS: Hematocrit 48.4 % (35.5-45.6); Hemoglobin 15.6 gm/dl (11.8-15.2)
[2021-06-28] MEDS: PANTOPRAZOLE 40 MG TAB PO SCH ×2 (08:37→17:43)
[2021-06-28 08:57] LABS: INR 0.97 (0.87-1.13)
--- NOTE | 2021-06-28 08:58 | Event Note ---
Date: 06/27/21 Patient reportedly refused VQ scan. Nurse reports that patient wants to fire me as his physician. Continue psychiatric evaluation for schizophrenia. I suspect that much of the patient's agitation is related to his paranoia from schizophrenia. Patient will be seen by the nurse practitioner with our group in the morning. Psychiatry recommends inpatient psychiatric care. Continue heparin bridge and Coumadin for now
[2021-06-28] MEDS: DIVALPROEX DR 250 MG TAB PO SCH (09:39)
[2021-06-28] MEDS: QUEtiapine 100 MG TAB PO SCH (09:39)
[2021-06-28] MEDS: HEPARIN/ 0.45% NACL DRIP 25,000 UNIT/500 ML BAG IV SCH (11:46)
--- NOTE | 2021-06-28 14:29 | Progress Note ---
Subjective - Reason for Consult Consult date: 06/28/21 Reason for consult: mental health evaluation - Chief Complaint Chief complaint: The patient continues to present with paranoia stating "there are ants in my food, people are trying to kill me. " The patient reports that he worked 17 days in a row prior to this admission. REVIEW OF SYSTEMS Constitutional: Negative for weight loss ENT: Negative for stridor Respiratory: Negative for cough or hemoptysis All other systems reviewed and are negative MENTAL STATUS EXAMINATION General Appearance and Behavior: Age appropriate, good hygiene, wearing ap propriate clothes, good eye contact, cooperative polite with questioning. Cooperation: Participating/engaged Psychomotor Behavior: unremarkable and within normal limits Mood:agitated Affect and affective range: congruent with mood Thought Process: racing thoughts Thought Content: suicidal Speech: Normal volume, Regular rate and rhythm Intellectual Functioning: Average Suicidal Ideation: Yes Homicidal Ideation: Denies Hallucinations: Yes, auditory/Tactile Impulse Control:Questionable Insight and Judgment: Limit insight and poor judgment Memory: Normal Attention: Divided Orientation: Alert, oriented Assessment and Plan (1) Schizophrenia-F20.9 Current Visit: Yes Status: Acute RECOMMENDATIONS I agree with the current treatment plan Increased Depakote DR 500 mg po BID Seroquel 100 mg po in the morning Seroquel 200 mg po QHS Risks, benefits and alternatives of medications discussed with the patient, questions answered and consent obtained from patient. PSYCHOTHERAPY: Supportive psychotherapy provided MEDICAL: Per primary team DELIRIUM PRECAUTIONS: Please re-orient patient frequently, keep lights on during the day, and minimize benzodiazepines and opiates as these medications could worsen patient's confusion. SENIOR BILLING CONSULTANT: Per medical team DISPOSITION: Recommend acute inpatient psychiatric hospitalization at this time FOLLOW-UP: Will follow for medication management. Thank you for the consult. Please contact with any questions and/or concerns. Mental Status Exam - Vital signs Last Vital Signs Temp 98.4 F 06/28/21 08:29 Pulse 61 06/27/21 23:44 Resp 20 06/28/21 08:29 BP 150/79 06/28/21 08:29 Pulse Ox 100 06/28/21 07:27
[2021-06-28] MEDS: WARFARIN 10 MG TAB PO SCH (17:43)
[2021-06-28] MEDS ORDERED: DOCUSATE SODIUM 100 MG CAP PO PRN (18:46)
--- NOTE | 2021-06-28 18:51 | Progress Note ---
Assessment and Plan Assessment and plan: This is a 51-year-old male with schizophrenia, factor V leiden deficiency and history of multiple DVTs and PE admitted with schizophrenia, suicidal ideation, acute renal failure, accelerated hypertension and to rule out PE. Neuro: SI/visual hallucinations, h/o schizophrenia -Patient has active suicidal ideations and visual hallucinations -Psych consulted, appreciate recommendations -Psych recommends inpatient psychiatric hospitalization at this time -Depakote DR 500 mg p.o. twice daily, Seroquel 100 mg p.o. every morning, Seroquel 200 mg nightly -Avoid delirium -Reorientation as needed -Minimize benzodiazepines -As needed analgesia: [place], morphine, tramadol -As needed Ativan CV: Accelerated hypertension, subtherapeutic INR -Labetalol 200 mg twice daily -BP monitoring per protocol -Cardiology cosnult for chest pain workup however they have signed off as the patient is refusing recommendations/care Respiratory: NAD -Remains on room air -Patient initially complained of shortness of breath and dyspnea -Initial D-dimer 206 -Patient refused VQ scan GI: NAD -No output recorded as patient voids -Patient is on a cardiac diet -Protonix -BR: As needed Colace : Hyponatremia, acute kidney injury secondary to vasomotor nephropathy -Admit creatinine 1.7 -Creatinine trending down -Slight hyponatremia -Avoid nephrotoxic medications -Renally dose medications -Daily weights -Trend BMP ID: NAD -Monitor WBC and temperature curve -Monitor for signs and symptoms of infection Heme: Factor V Leiden deficiency, h/o PE/DVT, subtherapeutic INR -Patient states he takes Coumadin at home as he has failed all other anticoagulants -Patient is currently on heparin drip -PKS consulted for Coumadin dosage -Trend CBC -Transfuse for hemoglobin less than 7 -Patient refuses SCDs -Patient states that he has not been taking his Coumadin for 5 days prior to admission non CCT: 60 min Disposition Plan: tele/inpt vidhya Total Time Spent with Patient (Minutes): 60 History Interval history: This is a 51-year-old man with factor V Leiden deficiency, h/o bilateral DVTs, h/o PE, schizophrenia who presents to the emergency department on 06/25 with complaints of chest pain and shortness of breath persistent for the past 5 to 6 hours prior to admission with progressive worsening which worsens with exertion and associated with dyspnea. Patient was admitted to the hospital service for any chest pain with cardiac work-up, PE work-up and acute renal injury with consults to cardiology and psych. 06/25/2021. The patient will be admitted and placed on the chest pain pathway. We will follow-up cardiac isoenzymes and serial EKG. Initial troponin is negative. Cardiology consultation. Ischemic evaluation per cardiology recommendations. Given patient's factor V Leiden deficiency, we will check a D- dimer to risk stratify for possible PE. Consider CTA of chest. With regards to patient's renal insufficiency, we will start IV fluid hydration and follow-up BMP. Consider renal ultrasound and nephrology consultation. 06/26/2021. Cardiology reports patient was extremely argumentative and combative yesterday during their evaluation. Patient refused all tests and recommendations. I spoke with the patient this morning and he reports paranoia and history of schizophrenia. Patient also voiced to nursing suicidal ideation. We will obtain psychiatry consultation and place the patient on 1013. Patient will also undergo VQ scan to rule out PE given factor V Leiden deficiency. Start heparin bridge and Coumadin. Patient reports that he has been without his Coumadin for several days. Renal insufficiency has improved and acute kidney injury resolved with IV fluid hydration. Patient back to baseline creatinine at 1.3 06/27/2021. Continue 1013 for suicidal ideation. Continue Depakote to 50 mg p .o. twice daily per psychiatry recommendations. Continue heparin drip and Coumadin. VQ scan in a.m. to further assess for PE. However, D-dimer negative so suspicion is low. Creatinine at baseline of 1.3. Blood pressure improved with labetalol twice daily. 06/28: refused VQ scan, refuses cardiac workup, pt still having active delusions and hallucinations. Remains on heparin drip with Coumadin Hospitalist Physical - Constitutional Vitals: Temp Pulse Resp BP Pulse Ox 98.4 F 61 20 150/79 99 06/28/21 08:29 06/27/21 23:44 06/28/21 08:29 06/28/21 08:29 06/28/21 15:33 General appearance: Present: no acute distress, well-nourished - EENT Eyes: Present: PERRL, EOM intact ENT: hearing intact, clear oral mucosa, dentition normal - Neck Neck: Present: normal ROM - Respiratory Respiratory effort: normal Respiratory: bilateral: diminished - Cardiovascular Rhythm: regular Heart Sounds: Present: S1 & S2. Absent: systolic murmur, diastolic murmur - Extremities Extremities: no ischemia, pulses intact, pulses symmetrical, No edema, normal temperature, normal color Peripheral Pulses: within normal limits - Abdominal General gastrointestinal: soft, non-tender, non-distended, normal bowel sounds - Integumentary Integumentary: Present: warm, dry - Psychiatric Psychiatric: agitated - Neurologic Neurologic: CNII-XII intact, no focal deficits, moves all extremities - Allied Health Allied health notes reviewed: nursing, RT, social work HEART Score - HEART Score EKG: Non-specific Age: 45-65 Risk factors: 1-2 risk factors Troponin: Troponin T < 0.010 ng/mL (0.00-0.029) 06/25/21 14:24 Troponin: < normal limit Results - Labs CBC & Chem 7: 06/28/21 07:15 06/26/21 08:58 Labs: Laboratory Last Values WBC 5.5 K/mm3 (4.5-11.0) 06/26/21 08:58 RBC 5.78 M/mm3 (3.65-5.03) H 06/26/21 08:58 Hgb 15.6 gm/dl (11.8-15.2) H 06/28/21 07:15 Hct 48.4 % (35.5-45.6) H 06/28/21 07:15 MCV 86 fl (84-94) 06/26/21 08:58 MCH 28 pg (28-32) 06/26/21 08:58 MCHC 33 % (32-34) 06/26/21 08:58 RDW 13.9 % (13.2-15.2) 06/26/21 08:58 Plt Count 140 K/mm3 (140-440) 06/28/21 07:15 Lymph % (Auto) 27.8 % (13.4-35.0) 06/26/21 08:58 [place] % (Auto) 9.3 % (0.0-7.3) H 06/26/21 08:58 Eos % (Auto) 2.9 % (0.0-4.3) 06/26/21 08:58 Baso % (Auto) 0.4 % (0.0-1.8) 06/26/21 08:58 Lymph # (Auto) 1.5 K/mm3 (1.2-5.4) 06/26/21 08:58 [place] # (Auto) 0.5 K/mm3 (0.0-0.8) 06/26/21 08:58 Eos # (Auto) 0.2 K/mm3 (0.0-0.4) 06/26/21 08:58 Baso # (Auto) 0.0 K/mm3 (0.0-0.1) 06/26/21 08:58 Seg Neutrophils % 59.6 % (40.0-70.0) 06/26/21 08:58 Seg Neutrophils # 3.3 K/mm3 (1.8-7.7) 06/26/21 08:58 PT 14.0 Sec. (12.2-14.9) 06/28/21 07:15 INR 0.97 (0.87-1.13) 06/28/21 07:15 APTT 26.6 Sec. (24.2-36.6) 06/26/21 08:58 D-Dimer 206.51 ng/mlDDU (0-234) 06/26/21 08:58 Heparin Anti-Xa Level 0.49 U.I./ml (0.3-0.7) 06/28/21 16:28 Sodium 134 mmol/L (137-145) L 06/26/21 08:58 Potassium 3.8 mmol/L (3.6-5.0) 06/26/21 08:58 Chloride 101.3 mmol/L (98-107) 06/26/21 08:58 Carbon Dioxide 22 mmol/L (22-30) 06/26/21 08:58 Anion Gap 15 mmol/L 06/26/21 08:58 BUN 19 mg/dL (9-20) 06/26/21 08:58 Creatinine 1.3 mg/dL (0.8-1.3) 06/26/21 08:58 Estimated GFR > 60 ml/min 06/26/21 08:58 BUN/Creatinine Ratio 15 % 06/26/21 08:58 Glucose 125 mg/dL (75-100) H 06/26/21 08:58 Calcium 9.0 mg/dL (8.4-10.2) 06/26/21 08:58 Total Bilirubin 0.20 mg/dL (0.1-1.2) 06/25/21 04:08 AST 31 units/L (5-40) 06/25/21 04:08 ALT 37 units/L (7-56) 06/25/21 04:08 Alkaline Phosphatase 93 units/L (35-129) 06/25/21 04:08 Troponin T < 0.010 ng/mL (0.00-0.029) 06/25/21 14:24 Total Protein 7.4 g/dL (6.3-8.2) 06/25/21 04:08 Albumin 4.0 g/dL (3.9-5) 06/25/21 04:08 Albumin/Globulin Ratio 1.2 % 06/25/21 04:08 Br[place]/IV: Voiding Method Toilet Active Medications - Current Medications Current Medications: Generic Name Dose Route Start Last Admin Trade Name Freq PRN Reason Stop Dose Admin Acetaminophen 650 mg 06/25/21 10:00 Acetaminophen 325 Mg Tab PO Q4H PRN Pain MILD(1-3)/Fever >100.5/CASTRO Hydrocodone Bitart/Acetaminophen 2 each 06/25/21 10:00 06/27/21 17:39 Hydrocodone/Acetaminophen 5-325 Mg Tab PO 2 each Q6H PRN Administration Pain, Moderate (4-6) Divalproex Sodium 500 mg 06/28/21 22:[address] 500 Mg Tab PO BID AARON Docusate Sodium 100 mg 06/28/21 18:46 Docusate Sodium 100 Mg Cap PO BID PRN Constipation Heparin Sodium (Porcine) 5,000 unit 06/26/21 08:17 Heparin 10,000 Units/10 Ml Vial IV Q6H PRN Anti-Xa Assay < 0.1 units/ml Heparin Sodium/Sodium Chloride 25,000 unit in 500 mls @ 30 mls/hr 06/26/21 12:00 06/28/21 11:46 Heparin/ 0.45% Nacl-25,000 Unit/500 Ml IV 1,800 units/hr TITR AARON 36 mls/hr Administration Protocol 1,500 UNITS/HR Labetalol HCl 200 mg 06/26/21 22:00 06/28/21 09:39 Labetalol 200 Mg Tab PO 200 mg BID AARON Administration Lorazepam 2 mg 06/26/21 12:19 06/28/21 18:36 Lorazepam 2 Mg/Ml Vial IV 2 mg Q4H PRN Administration Agitation Morphine Sulfate 2 mg 06/25/21 10:00 06/25/21 22:19 Morphine 4 Mg/1 Ml Inj IV 2 mg Q4H PRN Administration Pain , Severe (7-10) Ondansetron HCl 4 mg 06/25/21 10:00 Ondansetron 4 Mg/2 Ml Inj IV Q8H PRN Nausea And Vomiting Pantoprazole Sodium 40 mg 06/27/21 07:30 06/28/21 17:43 Pantoprazole 40 Mg Tab PO 40 mg BIDAC AARON Administration Quetiapine Fumarate 200 mg 06/28/21 22:00 Quetiapine 200 Mg Tab PO QHS AARON Quetiapine Fumarate 100 mg 06/29/21 10:00 Quetiapine 100 Mg Tab PO DAILY AARON Sodium Chloride 10 ml 06/25/21 10:00 06/28/21 09:40 Sodium Chloride 0.9% 10 Ml Flush Syringe IV 10 ml BID AARON Administration Sodium Chloride 10 ml 06/25/21 08:50 Sodium Chloride 0.9% 10 Ml Flush Syringe IV PRN PRN LINE FLUSH Tramadol HCl 50 mg 06/25/21 10:00 Tramadol 50 Mg Tab PO Q6H PRN Pain, Moderate (4-6) Warfarin Sodium 10 mg 06/27/21 17:00 06/28/21 17:43 Warfarin 10 Mg Tab PO 10 mg DAILY@1700 AARON Administration
[2021-06-28] MEDS: DIVALPROEX DR 500 MG TAB PO SCH (21:18)
[2021-06-28] MEDS: QUEtiapine 200 MG TAB PO SCH (21:18)
[2021-06-29] MEDS: LORazepam 2 MG/ML VIAL IV PRN ×4 (00:02→20:17)
[2021-06-29] MEDS: MORPHINE 4 MG/1 ML INJ IV PRN ×3 (00:02→06:00)
[2021-06-29] MEDS: HEPARIN/ 0.45% NACL DRIP 25,000 UNIT/500 ML BAG IV SCH ×2 (00:02→20:35)
[2021-06-29 06:19] LABS: Hematocrit 45.5 % (35.5-45.6); Hemoglobin 14.7 gm/dl (11.8-15.2); Mean Corpuscular HGB Conc 32 % (32-34); Mean Corpuscular Volume 87 fl (84-94); Platelet Count 153 K/mm3 (140-440); Red Blood Count 5.21 M/mm3 (3.65-5.03); Red Cell Distribution Width 14.5 % (13.2-15.2)
[2021-06-29 06:26] LABS: INR 1.08 (0.87-1.13)
[2021-06-29 06:38] LABS: BUN/Creatinine Ratio 9; Blood Urea Nitrogen 13 mg/dL (9-20); Calcium 8.9 mg/dL (8.4-10.2); Hemolysis Index 15
[2021-06-29] MEDS: QUEtiapine 100 MG TAB PO SCH (09:48)
[2021-06-29] MEDS: HYDROcodone/ACETAMINOPHEN 5-325 MG TAB PO PRN (09:49)
[2021-06-29] MEDS: PANTOPRAZOLE 40 MG TAB PO SCH ×2 (09:49→17:49)
[2021-06-29] MEDS: DIVALPROEX DR 500 MG TAB PO SCH ×2 (09:49→22:42)
--- NOTE | 2021-06-29 11:52 | Progress Note ---
Subjective - Reason for Consult Consult date: 06/29/21 Reason for consult: mental health evaluation - Chief Complaint Chief complaint: The patient continues to present with paranoia, auditory hallucinations and suicidal ideation with a plan to run into moving car. REVIEW OF SYSTEMS Constitutional: Negative for weight loss ENT: Negative for stridor Respiratory: Negative for cough or hemoptysis All other systems reviewed and are negative MENTAL STATUS EXAMINATION General Appearance and Behavior: Age appropriate, good hygiene, wearing appropriate clothes, good eye contact, cooperative polite with questioning. Cooperation: Participating/engaged Psychomotor Behavior: unremarkable and within normal limits Mood:agitated Affect and affective range: congruent with mood Thought Process: racing thoughts Thought Content: suicidal Speech: Normal volume, Regular rate and rhythm Intellectual Functioning: Average Suicidal Ideation: Yes Homicidal Ideation: Denies Hallucinations: Yes, auditory/Tactile Impulse Control:Questionable Insight and Judgment: Limit insight and poor judgment Memory: Normal Attention: Divided Orientation: Alert, oriented Assessment and Plan (1) Schizophrenia-F20.9 Current Visit: Yes Status: Acute RECOMMENDATIONS I agree with the current treatment plan Increased Depakote DR 500 mg po BID Seroquel 100 mg po in the morning Seroquel 400 mg po QHS Start Zyprexa 10 mg po daily Risks, benefits and alternatives of medications discussed with the patient, questions answered and consent obtained from patient. PSYCHOTHERAPY: Supportive psychotherapy provided MEDICAL: Per primary team DELIRIUM PRECAUTIONS: Please re-orient patient frequently, keep lights on during the day, and minimize benzodiazepines and opiates as these medications could worsen patient's confusion. GLACIOLOGIST: Per medical team DISPOSITION: Recommend acute inpatient psychiatric hospitalization at this time FOLLOW-UP: Will follow for medication management. Thank you for the consult. Please contact with any questions and/or concerns. Mental Status Exam - Vital signs Last Vital Signs Temp 97.9 F 06/29/21 08:07 Pulse 77 06/29/21 08:07 Resp 18 06/29/21 08:07 BP 181/106 06/29/21 08:07 Pulse Ox 100 06/29/21 08:25
[2021-06-29] MEDS: carvediloL 25 MG TAB PO SCH ×3 (14:37→22:46)
[2021-06-29] MEDS: WARFARIN 10 MG TAB PO SCH (17:50)
--- NOTE | 2021-06-29 18:54 | Progress Note ---
Assessment and Plan Assessment and plan: This is a 51-year-old male with schizophrenia, factor V leiden deficiency and history of multiple DVTs and PE admitted with schizophrenia, suicidal ideation, acute renal failure, accelerated hypertension and to rule out PE. Neuro: SI/visual hallucinations, h/o schizophrenia -Patient has active suicidal ideations and visual hallucinations -Psych consulted, appreciate recommendations -Psych recommends inpatient psychiatric hospitalization at this time -Depakote DR 500 mg p.o. twice daily, Seroquel 100 mg p.o. every morning, Seroquel 200 mg nightly -Avoid delirium -Reorientation as needed -Minimize benzodiazepines -As needed analgesia: [place], morphine, tramadol -As needed Ativan CV: Accelerated hypertension, subtherapeutic INR -Labetalol 200 mg twice daily -BP monitoring per protocol -Cardiology cosnult for chest pain workup however they have signed off as the patient is refusing recommendations/care Respiratory: NAD -Remains on room air -Patient initially complained of shortness of breath and dyspnea -Initial D-dimer 206 -Patient refused VQ scan GI: NAD -No output recorded as patient voids -Patient is on a cardiac diet -Protonix -BR: As needed Colace : Hyponatremia, acute kidney injury secondary to vasomotor nephropathy -Admit creatinine 1.7 -Creatinine trending down -Slight hyponatremia -Avoid nephrotoxic medications -Renally dose medications -Daily weights -Trend BMP ID: NAD -Monitor WBC and temperature curve -Monitor for signs and symptoms of infection Heme: Factor V Leiden deficiency, h/o PE/DVT, subtherapeutic INR -Patient states he takes Coumadin at home as he has failed all other anticoagulants -Patient is currently on heparin drip -PKS consulted for Coumadin dosage -Trend CBC -Transfuse for hemoglobin less than 7 -Patient refuses SCDs -Patient states that he has not been taking his Coumadin for 5 days prior to admission non CCT: 60 min Disposition Plan: tele/inpt vidhya Total Time Spent with Patient (Minutes): 60 History Interval history: This is a 51-year-old man with factor V Leiden deficiency, h/o bilateral DVTs, h/o PE, schizophrenia who presents to the emergency department on 06/25 with complaints of chest pain and shortness of breath persistent for the past 5 to 6 hours prior to admission with progressive worsening which worsens with exertion and associated with dyspnea. Patient was admitted to the hospital service for any chest pain with cardiac work-up, PE work-up and acute renal injury with consults to cardiology and psych. 06/25/2021. The patient will be admitted and placed on the chest pain pathway. We will follow-up cardiac isoenzymes and serial EKG. Initial troponin is negative. Cardiology consultation. Ischemic evaluation per cardiology recommendations. Given patient's factor V Leiden deficiency, we will check a D- dimer to risk stratify for possible PE. Consider CTA of chest. With regards to patient's renal insufficiency, we will start IV fluid hydration and follow-up BMP. Consider renal ultrasound and nephrology consultation. 06/26/2021. Cardiology reports patient was extremely argumentative and combative yesterday during their evaluation. Patient refused all tests and recommendations. I spoke with the patient this morning and he reports paranoia and history of schizophrenia. Patient also voiced to nursing suicidal ideation. We will obtain psychiatry consultation and place the patient on 1013. Patient will also undergo VQ scan to rule out PE given factor V Leiden deficiency. Start heparin bridge and Coumadin. Patient reports that he has been without his Coumadin for several days. Renal insufficiency has improved and acute kidney injury resolved with IV fluid hydration. Patient back to baseline creatinine at 1.3 06/27/2021. Continue 1013 for suicidal ideation. Continue Depakote to 50 mg p. o. twice daily per psychiatry recommendations. Continue heparin drip and Coumadin. VQ scan in a.m. to further assess for PE. However, D-dimer negative so suspicion is low. Creatinine at baseline of 1.3. Blood pressure improved with labetalol twice daily. 06/28: refused VQ scan, refuses cardiac workup, pt still having active delusions and hallucinations. Remains on heparin drip with Coumadin Hospitalist Physical - Constitutional Vitals: Temp Pulse Resp BP Pulse Ox 97.9 F 74 18 172/92 98 06/29/21 08:07 06/29/21 16:33 06/29/21 16:33 06/29/21 16:33 06/29/21 16:33 General appearance: Present: no acute distress, well-nourished HEART Score - HEART Score EKG: Non-specific Age: 45-65 Risk factors: 1-2 risk factors Troponin: Troponin T < 0.010 ng/mL (0.00-0.029) 06/25/21 14:24 Troponin: < normal limit Results - Labs CBC & Chem 7: 06/29/21 04:41 06/29/21 04:41 Labs: Laboratory Last Values WBC 5.6 K/mm3 (4.5-11.0) 06/29/21 04:41 RBC 5.21 M/mm3 (3.65-5.03) H 06/29/21 04:41 Hgb 14.7 gm/dl (11.8-15.2) 06/29/21 04:41 Hct 45.5 % (35.5-45.6) 06/29/21 04:41 MCV 87 fl (84-94) 06/29/21 04:41 MCH 28 pg (28-32) 06/29/21 04:41 MCHC 32 % (32-34) 06/29/21 04:41 RDW 14.5 % (13.2-15.2) 06/29/21 04:41 Plt Count 153 K/mm3 (140-440) 06/29/21 04:41 Lymph % (Auto) 27.8 % (13.4-35.0) 06/26/21 08:58 [place] % (Auto) 9.3 % (0.0-7.3) H 06/26/21 08:58 Eos % (Auto) 2.9 % (0.0-4.3) 06/26/21 08:58 Baso % (Auto) 0.4 % (0.0-1.8) 06/26/21 08:58 Lymph # (Auto) 1.5 K/mm3 (1.2-5.4) 06/26/21 08:58 [place] # (Auto) 0.5 K/mm3 (0.0-0.8) 06/26/21 08:58 Eos # (Auto) 0.2 K/mm3 (0.0-0.4) 06/26/21 08:58 Baso # (Auto) 0.0 K/mm3 (0.0-0.1) 06/26/21 08:58 Seg Neutrophils % 59.6 % (40.0-70.0) 06/26/21 08:58 Seg Neutrophils # 3.3 K/mm3 (1.8-7.7) 06/26/21 08:58 PT 15.2 Sec. (12.2-14.9) H 06/29/21 04:41 INR 1.08 (0.87-1.13) 06/29/21 04:41 APTT 26.6 Sec. (24.2-36.6) 06/26/21 08:58 D-Dimer 206.51 ng/mlDDU (0-234) 06/26/21 08:58 Heparin Anti-Xa Level 0.49 U.I./ml (0.3-0.7) 06/28/21 16:28 Sodium 136 mmol/L (137-145) L 06/29/21 04:41 Potassium 3.6 mmol/L (3.6-5.0) 06/29/21 04:41 Chloride 104.3 mmol/L (98-107) 06/29/21 04:41 Carbon Dioxide 19 mmol/L (22-30) L 06/29/21 04:41 Anion Gap 16 mmol/L 06/29/21 04:41 BUN 13 mg/dL (9-20) 06/29/21 04:41 Creatinine 1.5 mg/dL (0.8-1.3) H 06/29/21 04:41 Estimated GFR > 60 ml/min 06/29/21 04:41 BUN/Creatinine Ratio 9 % 06/29/21 04:41 Glucose 97 mg/dL (75-100) 06/29/21 04:41 Calcium 8.9 mg/dL (8.4-10.2) 06/29/21 04:41 Total Bilirubin 0.20 mg/dL (0.1-1.2) 06/25/21 04:08 AST 31 units/L (5-40) 06/25/21 04:08 ALT 37 units/L (7-56) 06/25/21 04:08 Alkaline Phosphatase 93 units/L (35-129) 06/25/21 04:08 Troponin T < 0.010 ng/mL (0.00-0.029) 06/25/21 14:24 Total Protein 7.4 g/dL (6.3-8.2) 06/25/21 04:08 Albumin 4.0 g/dL (3.9-5) 06/25/21 04:08 Albumin/Globulin Ratio 1.2 % 06/25/21 04:08 [place]/IV: Voiding Method Toilet Active Medications - Current Medications Current Medications: Generic Name Dose Route Start Last Admin Trade Name Freq PRN Reason Stop Dose Admin Acetaminophen 650 mg 06/25/21 10:00 Acetaminophen 325 Mg Tab PO Q4H PRN Pain MILD(1-3)/Fever >100.5/CASTRO Hydrocodone Bitart/Acetaminophen 2 each 06/25/21 10:00 06/29/21 09:49 Hydrocodone/Acetaminophen 5-325 Mg Tab PO 2 each Q6H PRN Administration Pain, Moderate (4-6) Carvedilol 25 mg 06/29/21 10:00 06/29/21 14:37 Carvedilol 25 Mg Tab PO Not Given BID AARON Divalproex Sodium 500 mg 06/28/21 22:00 06/29/21 09:[address] 500 Mg Tab PO 500 mg BID AARON Administration Docusate Sodium 100 mg 06/28/21 18:46 Docusate Sodium 100 Mg Cap PO BID PRN Constipation Heparin Sodium (Porcine) 5,000 unit 06/26/21 08:17 Heparin 10,000 Units/10 Ml Vial IV Q6H PRN Anti-Xa Assay < 0.1 units/ml Heparin Sodium/Sodium Chloride 25,000 unit in 500 mls @ 30 mls/hr 06/26/21 12:00 06/29/21 00:02 Heparin/ 0.45% Nacl-25,000 Unit/500 Ml IV 1,800 units/hr TITR AARON 36 mls/hr Administration Protocol 1,500 UNITS/HR Lorazepam 2 mg 06/26/21 12:19 06/29/21 06:01 Lorazepam 2 Mg/Ml Vial IV 2 mg Q4H PRN Administration Agitation Morphine Sulfate 2 mg 06/25/21 10:00 06/29/21 06:00 Morphine 4 Mg/1 Ml Inj IV 2 mg Q4H PRN Administration Pain , Severe (7-10) Olanzapine 10 mg 06/29/21 12:00 06/29/21 14:37 Olanzapine 10 Mg Tab PO Not Given QDAY AARON Ondansetron HCl 4 mg 06/25/21 10:00 Ondansetron 4 Mg/2 Ml Inj IV Q8H PRN Nausea And Vomiting Pantoprazole Sodium 40 mg 06/27/21 07:30 06/29/21 17:49 Pantoprazole 40 Mg Tab PO 40 mg BIDAC AARON Administration Quetiapine Fumarate 200 mg 06/28/21 22:00 06/28/21 21:18 Quetiapine 200 Mg Tab PO 200 mg QHS AARON Administration Quetiapine Fumarate 100 mg 06/29/21 10:00 06/29/21 09:48 Quetiapine 100 Mg Tab PO 100 mg DAILY AARON Administration Sodium Chloride 10 ml 06/25/21 10:00 06/29/21 09:49 Sodium Chloride 0.9% 10 Ml Flush Syringe IV 10 ml BID AARON Administration Sodium Chloride 10 ml 06/25/21 08:50 Sodium Chloride 0.9% 10 Ml Flush Syringe IV PRN PRN LINE FLUSH Tramadol HCl 50 mg 06/25/21 10:00 Tramadol 50 Mg Tab PO Q6H PRN Pain, Moderate (4-6) Warfarin Sodium 10 mg 06/27/21 17:00 06/29/21 17:50 Warfarin 10 Mg Tab PO 10 mg DAILY@1700 AARON Administration
[2021-06-29] MEDS: QUEtiapine 200 MG TAB PO SCH (22:42)
[2021-06-30] MEDS: LORazepam 2 MG/ML VIAL IV PRN ×3 (03:28→12:52)
[2021-06-30 04:02] LABS: Hematocrit 46.2 % (35.5-45.6); Hemoglobin 14.4 gm/dl (11.8-15.2)
[2021-06-30 04:54] LABS: INR 1.15 (0.87-1.13)
[2021-06-30] MEDS: PANTOPRAZOLE 40 MG TAB PO SCH ×2 (08:44→15:30)
[2021-06-30] MEDS: carvediloL 25 MG TAB PO SCH (09:06)
[2021-06-30] MEDS: DIVALPROEX DR 500 MG TAB PO SCH (09:06)
[2021-06-30] MEDS: QUEtiapine 100 MG TAB PO SCH (09:06)
[2021-06-30] MEDS: HEPARIN/ 0.45% NACL DRIP 25,000 UNIT/500 ML BAG IV SCH (11:54)
[2021-06-30 12:48] VITALS: BP 177/97
[2021-06-30] MEDS: HYDROcodone/ACETAMINOPHEN 5-325 MG TAB PO PRN (12:54)
--- NOTE | 2021-06-30 13:26 | Progress Note ---
Subjective - Reason for Consult Consult date: 06/30/21 Reason for consult: psychosis - Chief Complaint Chief complaint: The patient is lucid, states he is doing well. He reports sleep and appetite as good. He denies any current suicidal/homicidal ideation and denies hallucinations. The patient states he is ready to go home. REVIEW OF SYSTEMS Constitutional: Negative for weight loss ENT: Negative for stridor Respiratory: Negative for cough or hemoptysis All other systems reviewed and are negative MENTAL STATUS EXAMINATION General Appearance and Behavior: Age appropriate, good hygiene, wearing mell ropriate clothes, good eye contact, cooperative polite with questioning. Cooperation: Participating/engaged Psychomotor Behavior: unremarkable and within normal limits Mood:calm Affect and affective range: congruent with mood Thought Process: Goal directed Thought Content: Not suicidal Speech: Normal volume, Regular rate and rhythm Intellectual Functioning: Average Suicidal Ideation: Denies Homicidal Ideation: Denies Hallucinations: Denies Impulse Control:Questionable Insight and Judgment: Limit insight and fair judgment Memory: Normal Attention: Divided Orientation: Alert, oriented Assessment and Plan (1) Schizophrenia-F20.9 Current Visit: Yes Status: Acute RECOMMENDATIONS DC 1013 I agree with the current treatment plan Increased Depakote DR 500 mg po BID Seroquel 100 mg po in the morning Seroquel 400 mg po QHS Continue Zyprexa 10 mg po daily Risks, benefits and alternatives of medications discussed with the patient, questions answered and consent obtained from patient. PSYCHOTHERAPY: Supportive psychotherapy provided MEDICAL: Per primary team DELIRIUM PRECAUTIONS: Please re-orient patient frequently, keep lights on during the day, and minimize benzodiazepines and opiates as these medications could worsen patient's confusion. HIGH VALUE ASSOCIATE: Per medical team DISPOSITION: Do not recommend acute inpatient psychiatric hospitalization at this time. Line Server will provide patient with psychiatry outpatient resources. FOLLOW-UP: Will sign off. Thank you for the consult. Please contact with any questions and/or concerns. Mental Status Exam - Vital signs Last Vital Signs Temp 98.1 F 06/29/21 20:15 Pulse 69 06/30/21 12:07 Resp 18 06/30/21 12:07 BP 177/97 06/30/21 12:07 Pulse Ox 95 06/30/21 12:07
--- NOTE | 2021-06-30 14:42 | Electrocardiograph Report ---
[facility] Test Date: 2021-06-25 Test Time: 03:01:14 Pat Name: BARTOLO MONTILLA Department: Room: A460 Gender: M [employer] Consultant: ALON : 1970 Requested By: GONZALO SANCHEZ III Order Number: [id number] Reading MD: Yuliya Duong Measurements Intervals [place] Rate: 77 P: 44 AL: 148 QRS: 44 QRSD: 83 T: 197 QT: 405 QTc: 460 Interpretive Statements Sinus rhythm Probable left atrial enlargement Probable left ventricular hypertrophy Abnormal T, consider ischemia, lateral leads No previous ECG available for comparison Electronically Signed On 06-30-2021 14:42:39 EDT by Yuliya Duong
--- NOTE | 2021-06-30 16:39 | Discharge Summary ---
Providers - Providers Date of Admission: 06/26/21 11:54 Attending physician: CISCO ZABALA MD 06/25/21 Consult to Cardiac Rehabilitation [CONS] Routine Reason For Exam: Phase I 06/25/21 08:50 Consult to Cardiology [CONS] Routine Consulting Provider: ARIANA BURR Reason For Exam: cp 06/26/21 08:19 psychiatry consult [Consult to Mental Health] [CONS] Routine Reason For Exam: SI, ? Psychosis Primary care physician: JARED ESPINAL MD Hospitalization Condition: Good Hospital course: 07/07/2021 patient continues to refuse to take medications and the tests. His BP remains elevated. He is on heparin infusion since INR is not therapeutic. Patient states that is feeling much better as well as is auditory hallucinations. He wants to go home. Patient was seen by psychiatry ONCOLOGIST today for follow-up. Psychiatry ONCOLOGIST documented that patient currently has no suicidal ideation, discontinued 1013 order and he cleared him for discharge. Psychiatric nurse practitioner gave him written prescriptions as well as resources for psychiatric follow-up as outpatient. I advised the nursing staff and wrapper caser that patient is not medically ready for discharge since his INR is subtherapeutic with a history of PE and DVTs. His Coumadin therapy is being managed by pharmacy. department store general manager informed me that patient did not want to stay and left hospital AMA. I called and spoke to patient's primary nurse and she reported to me that wrapper caser arranged patient's transportation to home and coordinated his departure with the hospital security staff. Disposition: LEFT AGAINST MEDICAL ADVICE Core Measure Documentation - Palliative Care Palliative Care/ Comfort Measures: Not Applicable Exam - Constitutional Vitals: Temp Pulse Resp BP Pulse Ox 98.1 F 69 18 177/97 95 06/29/21 20:15 06/30/21 12:07 06/30/21 12:07 06/30/21 12:07 06/30/21 12:07 Plan Follow up with: JARED ESPINAL MD [Primary Care Provider] - 3-5 Days Prescriptions: Quetiapine Fumarate [SEROquel] 400 mg PO QHS 30 Days #30 tablet Warfarin [Coumadin] 7.5 mg PO QDAY #[address] [DepaKOTE DR] 500 mg PO BID 30 Days #60 tablet QUEtiapine [SEROquel] 100 mg PO BID #60 QUEtiapine [SEROquel] 100 mg PO QDAY 30 Days #30 tab OLANzapine [ZyPREXA] 10 mg PO DAILY 30 Days #30 tablet
--- NOTE | 2021-07-01 09:50 | Electrocardiograph Report ---
[facility] Test Date: 2021-06-25 Test Time: 13:21:35 Pat Name: BARTOLO MONTILLA Department: Room: A460 Gender: M Quality Assurance Manager: KATELIN : 1970 Requested By: JENNIFER SIMMONS Order Number: [id number] Reading MD: Yuliya Duong Measurements Intervals [place] Rate: 77 P: 56 TN: 146 QRS: 69 QRSD: 82 T: 256 QT: 377 QTc: 427 Interpretive Statements Sinus rhythm Probable left atrial enlargement Left ventricular hypertrophy with repolarization abnormalities of LVH Abnormal T, consider ischemia, diffuse leads Compared to ECG 06/25/2021 03:01:14 No significant changes Electronically Signed On 07-01-2021 9:49:55 EDT by Yuliya Duong
== END 2021-06-30 15:00 | disposition left against medical advice (07) | DRG 391 ==
LOC: ED 02:14 → 4A 05:18 → OBSVTOIN 06-26 11:54
PROVIDERS: ADMIT Internal Medicine Geriatric Medicine; ATTEND Internal Medicine
DX: K21.9 Gastro-esophageal reflux disease without esophagitis (principal); N17.0 Acute kidney failure with tubular necrosis; D68.2 Hereditary deficiency of other clotting factors; E87.1 Hypo-osmolality and hyponatremia; R07.89 Other chest pain; Z20.822 Contact with and (suspected) exposure to COVID-19; F20.9 Schizophrenia, unspecified; I10 Essential (primary) hypertension
CPT/HCPCS: 36415; 71045; 80048; 80053; 84484; 85014; 85018; 85025; 85027; 85049; 85379; 85520; 85610; 85730; 93005; G0378; J0360; J1644; J2060; J2270; J2405